=== PATIENT | male | born 1950 | race Caucasian/White ===

== ENCOUNTER → 2019-02-11 | Day surgery (SDC) | payer MEDICARE ==
[~2019-02-11] MED LIST: Acetaminophen TAB* 325 MG ONE; Acetaminophen TAB* 325 MG PO ONE; Buffered Lidocaine 1% SYRIN* 1 ML/SYRINGE INTRADERM ONE; Bupivacaine 0.5% W/EPI SDV* 30 ML VIAL ONE; Dexamethasone IV* 4 MG/ML 1 ML (4 MG) ONE; DiMENhydriNATE IV* 50 MG/ML VIAL IV PUSH PRN; Famotidine IV* 10 MG/ML 2 ML (20 mg) ONE; Gabapentin CAP(*) 300 MG ONE; Gabapentin CAP(*) 300 MG PO ONE; HYDROcodone/ACETAMIN 5-325 MG* 1 TAB ONE; HYDROcodone/ACETAMIN 5-325 MG* 1 TAB PO PRN; Ketorolac INJ* 30 MG/ML 1 ML VIAL ONE; Lactated Ringers 1000 ML Bag* 1,000 ML IV SCH; Lidocaine 1% INJ* 10 MG/ML 30 ML SDV ONE; Lidocaine 2% PF * 5 ML VIAL ONE; Midazolam* 1 MG/ML 2 ML VIAL (2 MG) ONE; Naloxone* 0.4 MG/ML 1 ML VIAL IV PRN; Ondansetron INJ* 2 MG/ML VIAL IV PRN; Ondansetron INJ* 2 MG/ML VIAL ONE; Propofol* 10 MG/ML 20 ML BTL ONE; ceFAZolin 2 GM in NS PREMIX(*) 2 GM/100 ML BAG IVPB ONE; diPHENhydraMINE IV* 50 MG/ML 1 ml VIAL (BENADRYL) IV PRN; fentaNYL* 50 MCG/ML 2 ML VIAL (100 MCG VIAL) IV PRN; fentaNYL* 50 MCG/ML 2 ML VIAL (100 MCG VIAL) ONE
--- NOTE | 2019-02-11 09:59 | BRIEFOPN ---
Brief Operative Note - Surgery Procedures: OPERATIVE REPORT Pre-op: Left inguinal hernia Post-Op: Left indirect inguinal hernia Procedure:Open repair with mesh of left inguinal hernia Surgeon: MD Myrtle Asst: MOHINDER Shane Anes: Local with MACDr. Dockery IVF:1 liter of crystalloid EBL:min Specimen: none Drain: none Wound:one To PACU
[2019-02-11 12:46] VITALS: BP 101/68
--- NOTE | 2019-02-11 14:06 | OP ---
DATE OF OPERATION: 02/11/19 [facility] DATE OF : 50 SURGEON: Chauncey Iraheta MD. BLUEPRINT CLERK: MOHINDER Nieves. ANESTHESIOLOGIST: Dr. Dockery. ANESTHESIA: Local with monitored anesthesia care. PRE-OPERATIVE DIAGNOSIS: Left inguinal hernia. POST-OPERATIVE DIAGNOSIS: Left indirect inguinal hernia. OPERATIVE PROCEDURE: Open repair with mesh of a left indirect inguinal hernia. ESTIMATED BLOOD LOSS: Minimal. IV FLUIDS: 1 L of crystalloids. SPECIMEN: None. WOUND CLASSIFICATION: I. DRAINS: None. COMPLICATIONS: None. FINDINGS: Small left indirect inguinal hernia, no evidence of direct space hernia. DESCRIPTION OF PROCEDURE: Written informed consent was obtained. The left groin was marked with indelible ink and preoperative antibiotics were administered. The patient was taken to the operating room and placed in a supine position. Sequential compression devices and a warming blanket were applied. The left groin and the abdomen were prepped and draped in the usual sterile fashion and anesthesia was administered. Time-out verification was completed. Lidocaine 1% mixed with 0.25% Marcaine was infiltrated extensively in the left groin and an oblique incision several fingerbreadths above the inguinal crease was made and carried down through the subcutaneous tissue. Kevin's fascia was identified and divided and the external oblique aponeurosis was identified as well as the external ring. These were opened in the direction of their fibers to expose the underlying spermatic cord and inguinal floor. The spermatic cord was encircled with one-quater inch Griffith drain without difficulty at the pubic tubercle. Careful evaluation of the cord structures revealed a rather large cord lipoma which was from the cord structures up into internal ring and then divided. I did not send this for specimen. Careful evaluation also noted a small to moderate sized indirect inguinal hernia sac protruding through the internal ring which really appeared to be of about normal size. The peritoneal sac was then up into the internal ring and reduced without difficulty. The direct space was intact without evidence of direct hernia. Next, the Bard ProGrip precut self-gripping mesh was then placed and sutured to the pubic tubercle with a 0 Vicryl horizontal mattress suture. It was then attached to the conjoint tendon superiorly, the musculature laterally and the inguinal ligament inferiorly. The internal ring was reconstructed nicely and care was taken to prevent injury to the spermatic cord and its contents. Once this was complete, additional Marcaine was infiltrated. Hemostasis was assured. The external oblique aponeurosis was closed with a running 3-0 Vicryl suture. The Kevin's fascia was closed with a running 3-0 Vicryl suture. The skin was approximated with a subcuticular 4-0 Vicryl suture. Steri-Strips and a sterile dressing were applied. The patient tolerated the procedure well, was taken to the recovery room in stable condition. [id number]/[facility] #: [id number] MTDD
== END | disposition home or self-care (01) ==
LOC: OR 06:41
PROVIDERS: ATTEND Surgery
DX: K40.90 Unilateral inguinal hernia, without obstruction or gangrene, not specified as recurrent (principal); F17.210 Nicotine dependence, cigarettes, uncomplicated
CPT/HCPCS: A9270-GY; J0690; J1100; J1885; J2250; J2405; J2704; J3010